=== PATIENT | male | born 1980 | race Caucasian/White ===

== ENCOUNTER 2018-11-27 10:56 | Inpatient (IN) | payer MEDICAID ==
[2018-11-27 11:06] VITALS: BMI 31.4
[2018-11-27 11:52] LABS: BASO # 0.01 K/mm3 (0.0-2.0); BASO % 0.2 % (0.0-3.0); EOS # 0.2 (0.0-0.7); EOS % 3.8 % (1.5-5.0); HEMOGLOBIN 14.5 g/dL (14.0-18.0); LYMPH # 2.1 (1.2-3.4); LYMPH % 41.6 % (22.0-35.0); MEAN CORPUSCULAR HEMOGLOBIN 30.8 pg (25.0-35.0); MEAN CORPUSCULAR HGB CONC 34.6 g/dl (31.0-37.0); MEAN PLATELET VOLUME 9.4 fl (7.0-11.0); MONO # 0.6 (0.1-0.6); MONO % 12.2 % (1.0-6.0); RBC 4.71 10^6/uL (3.5-6.1); RED CELL DISTRIBUTION WIDTH 13.2 % (11.5-14.5)
[2018-11-27 12:01] LABS: URINE BILIRUBIN NEGATIVE (NEGATIVE); URINE BLOOD NEGATIVE (NEGATIVE); URINE GLUCOSE (UA) NEGATIVE (NEGATIVE); URINE LEUKOCYTE ESTERASE NEGATIVE Leu/uL (NEGATIVE); URINE PROTEIN NEGATIVE mg/dL (<30 mg/dL)
[2018-11-27 12:04] LABS: ALB/GLOB RATIO 1.4 (1.1-1.8); ALBUMIN 4.3 g/dL (3.0-4.8); ALT/SGPT 79 U/L (7-56); AST/SGOT 39 U/L (17-59); BLOOD UREA NITROGEN 17 mg/dL (7-21); CALCIUM 9.4 mg/dL (8.4-10.5); GFR NON-AFRICAN AMERICAN > 60
[2018-11-27 12:05] LABS: ACETAMINOPHEN < 10.0 ug/ml (10.0-20.0); SALICYLATE < 1 mg/dL (2.0-20.0)
[2018-11-27 12:30] LABS: URINE APPEARANCE CLEAR (CLEAR); URINE COLOR YELLOW (YELLOW)
[2018-11-27 12:42] LABS: BARBITURATES, UR NEGATIVE (NEGATIVE); BENZODIAZEPINES, UR NEGATIVE (NEGATIVE); OPIATES, UR NEGATIVE (NEGATIVE); PHENCYCLIDINE, UR NEGATIVE (NEGATIVE)
--- NOTE | 2018-11-27 12:42 | RAD ---
Date of service: 11/27/2018 HISTORY: PES COMPARISON: No prior. TECHNIQUE: 1 view obtained. FINDINGS: LUNGS: No active pulmonary disease. PLEURA: No significant pleural effusion identified, no pneumothorax apparent. CARDIOVASCULAR: No aortic atherosclerotic calcification present. Normal cardiac size. No pulmonary vascular congestion. OSSEOUS STRUCTURES: No significant abnormalities. VISUALIZED UPPER ABDOMEN: Normal. OTHER FINDINGS: None. IMPRESSION: No active disease.
--- NOTE | 2018-11-27 14:14 | ED PDOC ---
Arrival/HPI - General Chief Complaint: Psychiatric Evaluation Time Seen by Provider: 11/27/18 10:58 Historian: Patient - History of Present Illness Narrative History of Present Illness (Text): 11/27/18 14:09 38yr old male presents today brought in by ambulance for psychiatric evaluation. Patient states he has been having some personal problems at home. Patient denies chest pain or shortness of breath. No dizziness or weakness. No nausea vomiting diarrhea or constipation. No abdominal pain. Patient states he is had some thoughts of suicide but does not have the capability of hurting himself. Patient states he has been having some issues with his family at home. He states he just wants to go home and try and work everything out with his family. Past Medical History - Provider Review Nursing Documentation Reviewed: Yes - Travel History Have you recently traveled outside [place] w/in the past 3 mons?: No - Infectious Disease Hx of Infectious Diseases: None - Psychiatric Hx Psychophysiologic Disorder: Yes Hx Depression: Yes Hx Substance Use: No - Anesthesia Hx Anesthesia: No Hx Anesthesia Reactions: No Hx Malignant Hyperthermia: No Family/Social History - Physician Review Nursing Documentation Reviewed: Yes Family/Social History: Unknown Family HX Smoking Status: Former Smoker Hx Alcohol Use: No Hx Substance Use: No Allergies/Home Meds Allergies/Adverse Reactions: Allergies No Known Allergies Allergy (Verified 11/27/18 11:05) Review of Systems - Review of Systems Constitutional: absent: Fatigue, Fevers Respiratory: absent: SOB, Cough Cardiovascular: absent: Chest Pain, Palpitations Gastrointestinal: absent: Abdominal Pain, Nausea, Vomiting Musculoskeletal: absent: Arthralgias Skin: absent: Rash, Pruritis Neurological: absent: Headache, Dizziness Psychiatric: Depression. absent: Anxiety, Suicidal Ideation Physical Exam Vital Signs Reviewed: Yes Vital Signs Temp Pulse Resp BP Pulse Ox 11/27/18 10:56 98.6 F 73 18 119/77 98 Temperature: Afebrile Blood Pressure: Normal Pulse: Regular Respiratory Rate: Normal Appearance: Positive for: Well-Appearing, Non-Toxic, Comfortable Pain Distress: None Mental Status: Positive for: Alert and Oriented X 3 - Systems Exam Head: Present: Atraumatic Mouth: Present: Moist Mucous Membranes Neck: Present: Normal Range of Motion Respiratory/Chest: Present: Clear to Auscultation, Good Air Exchange. No: Respiratory Distress, Accessory Muscle Use Cardiovascular: Present: Regular Rate and Rhythm, Normal S1, S2. No: Murmurs Abdomen: No: Tenderness, Distention, Peritoneal Signs, Rebound, Guarding Upper Extremity: Present: Normal Inspection Lower Extremity: Present: Normal Inspection Neurological: Present: GCS=15, Speech Normal Skin: Present: Warm, Dry, Normal Color. No: Rashes Psychiatric: Present: Alert, Oriented x 3 Medical Decision Making ED Course and Treatment: 11/27/18 14:16 Patient is nontoxic well-appearing in no distress vital signs are stable. CBC WNL CMP WNL Tylenol WNL Salicylate WNL Alcohol level WNL Urine drug screen wnl UA; wnl cxr: wnl ekg normal sinus rhythm at 71 bpm normal axis normal intervals no ST elevations pt is medically cleared for PES evaluation Patient was seen and evaluated by PES screener: Nancy After getting collateral from the patient's . The patient was placed on a one-to-one for suicide precautions. Patient signed voluntarily to the psychiatric floor. mpression: Depression Admit to behavioral health floor - Lab Interpretations Lab Results: Total Bilirubin 0.5 mg/dL (0.2-1.3) 11/27/18 11:35 AST 39 U/L (17-59) 11/27/18 11:35 ALT 79 U/L (7-56) H 11/27/18 11:35 Alkaline Phosphatase 87 U/L (38-126) 11/27/18 11:35 Total Protein 7.4 g/dL (5.8-8.3) 11/27/18 11:35 Albumin 4.3 g/dL (3.0-4.8) 11/27/18 11:35 Globulin 3.1 gm/dL 11/27/18 11:35 Albumin/Globulin Ratio 1.4 (1.1-1.8) 11/27/18 11:35 Urine Color Yellow (YELLOW) 11/27/18 11:38 Urine Appearance Clear (CLEAR) 11/27/18 11:38 Urine pH 7.0 (4.7-8.0) 11/27/18 11:38 Ur Specific [place] 1.020 (1.005-1.035) 11/27/18 11:38 Urine Protein Negative mg/dL (<30 mg/dL) 11/27/18 11:38 Urine Glucose (UA) Negative mg/dL (NEGATIVE) 11/27/18 11:38 Urine Ketones Negative mg/dL (NEGATIVE) 11/27/18 11:38 Urine Blood Negative (NEGATIVE) 11/27/18 11:38 Urine Nitrate Negative (NEGATIVE) 11/27/18 11:38 Urine Bilirubin Negative (NEGATIVE) 11/27/18 11:38 Urine Urobilinogen 1.0 E.U./dL (<1 E.U./dL) H 11/27/18 11:38 Ur Leukocyte Esterase Negative Mima/uL (NEGATIVE) 11/27/18 11:38 - RAD Interpretation Radiology Orders: 11/27/18 11:22 CHEST PORTABLE [RAD] Stat Disposition/Present on Arrival - Present on Arrival Any Indicators Present on Arrival: No History of DVT/PE: No History of Uncontrolled Diabetes: No Urinary Catheter: No History of Decub. Ulcer: No History Surgical Site Infection Following: None - Disposition Have Diagnosis and Disposition been Completed?: Yes Diagnosis: Depression Disposition: HOSPITALIZED Disposition Time: 15:00 Patient Plan: Admission Condition: FAIR
[2018-11-27 17:58] VITALS: O2SAT 99
--- NOTE | 2018-11-27 19:03 | PCM.BM ---
<BenedictAaron - Last Filed: 11/27/18 18:58> Treatment Plan Problems - Problems identified on initial assessmt Feelings of Worthlessness Date Initiated: 11/27/18 Time Initiated: 18:00 Assessment reference: NA Status: Active Priority: 1 Hopelessness/Helplessness Date Initiated: 11/27/18 Time Initiated: 18:00 Assessment reference: NA Status: Active Priority: 2 Ineffective Coping Date Initiated: 11/27/18 Time Initiated: 18:00 Assessment reference: NA Status: Active Treatment assets and liabiliti Patient Assests: cooperative, ADL independent, good support system, cognitively intact, good interpersonal skills Patient Liabilities: financial problems - Milieu Protocol Maintain good personal hygiene: daily Encourage regular showers, daily Remind patient to perform daily oral care, every shift Assist patient to perform ADL's Maintain personal safety: every shift Educate patient to report safety concerns to staff, every shift Monitor environment for contraband/sharps Medication safety: Monitor for expected outcome, potential side effects: every shift, Assess barriers to learning: every shift, Assess readiness for medication education: every shift Family Contact Family involvement: Family/SO is involved Family contact: Patient agrees to contact - Goals for Treatment Patient goals for treatment: Need coping skills Discharge/Continuing Care - Education Needs Education Needs: Patient Medication, Patient Diagnosis/Disease Process, Patient Coping Skills, Patient Anger Management skills, Patient Placement options, Patient Community resources, Patient Activities of Daily Living, Patient Pain, Patient Nutrition, Patient Uses of Medical Equipment, Patient Health Practices/Safety, Patient Personal Hygiene/Grooming, Patient Aftercare Safety Plan - Discharge Discharge Criteria: Tolerates medication w/o severe side effects <Tamiko Pearson - Last Filed: 11/28/18 08:45> - Diagnosis (1) MDD (major depressive disorder) Status: Acute Interventions: 11/28/18 08:45 Psychoeducation Psychopharmacology/adjustment of medications as needed/ monitoring possible side effects Evaluate pt on daily basis Compliance with medications and follow up appointments Suicide and homicide risk assessment and prevention Relapse prevention Reduction of symptoms Improve functional status Family involvement As outpatient: cognitive behavioral therapy <Kenzie Cr - Last Filed: 11/29/18 11:21> Family Contact Family involvement: Famliy/SO not involved Family contact: Patient declines to allow family contact at present - Goals for Treatment Patient goals for treatment: "I just want to leave." <Paty Morgan - Last Filed: 11/29/18 12:15>
--- NOTE | 2018-11-27 21:23 | CARD ---
APPROVED REPORT Date of service: 11/27/2018 EKG Measurement Heart [id number] <Conclusion> Normal sinus rhythm Normal ECG
[2018-11-28 08:20] LABS: GLUCOSE,FASTING 92 mg/dL (65-110); HDL CHOLESTEROL 28 mg/dL (29-60)
[2018-11-28 08:30] LABS: LDL CHOLESTEROL 134 mg/dL (0-129)
--- NOTE | 2018-11-28 15:28 | PCM.PSYCH ---
Initial Psychiatric Evaluation - Initial Psychiatric Evaluation Type of Admission: Voluntary Legal Status: Capacity Chief Complaint (in patient's own words): "I have certain expectations from myself, I was facing couple of problems, I think that I have some issues...." Patient's Reaction to Hospitalization: Patient was admitted for evaluation and stabilization of depressive symptoms, possible suicidal ideations, patient told his to take care of kids and made it clear that he wanted to end up his life. History of Present Illness and Precipitating Events: shortly, patient is a 38-year old male, not known previous psychiatric history, patient denies history of suicidal attempts, patient denies history of being admitted to the psychiatric inpatient unit, patient was brought in by ambulance for evaluation of depressive symptoms. In the emergency room patient was minimizing his symptoms, denied any thoughts of harming himself, but as per patient's collateral information patient was verbalizing suicidal ideation with a plan to jump off the bridge. Patient texted his "I am done" "You win" "I can't do this anymore" "Take care of Roosevelt". patient expressed highs concerns about patient's safety, patient was admitted for observation and stabilization and medication initiation and titration. Patient was seen and examined today at the treatment team meeting, patient presented with acceptable personal hygiene, good ADLs, patient appears to be poor and unreliable historian, was making vague statements such as "I had a few problems, I was facing few issues, I was not able to pass some difficulties....."thought process was circumstantial but not tangential Patient was not opening up, patient reported for past 1 week and a half she was not doing well. Pt admitted that he had a suicidal ideation only when this quality analyst/technical writer mentioned about his text to his , pt became tearful. Patient denied manic episodes, denied, denied anxiety symptoms. Patient denied hearing voices, denies seeing things, denies paranoid ideations, but patient presented to be guarded. Patient is 04/09 Survivor, as per collateral pt had unspecified childhood trauma, but denied any current/active PTSD symptoms. pt reported that he has difficulties in his paige in God now. Patient denies using drugs, denies smoking, denies alcohol consumption. Patient has history of cannabis abuse. Past psychiatric history: Denied Family history: Patient denies family history of mental illness, patient denies history of suicidal attempts. Medical history: Patient reported being healthy. Patient contracted for safety. pt currently lives alone, pt's and kids staying in her mom's apartment. over the weekend pt's family stay together. pt's kids are 6yo and 3months old. pt currently unemployed, reported difficulties to keep a job, last job was about two weeks ago, pt staid for 1,5weeks there, prior to that in July 2018. longest employment was 2years. 11/27/18 11:35 11/27/18 11:35 Lab Results 11/28/18 07:45: TSH 3rd Generation 1.41 11/28/18 07:45: Hemoglobin A1c 5.9 11/28/18 07:45: Fasting Glucose 92, Triglycerides 154, Cholesterol 198, LDL Cholesterol Direct 134 H, HDL Cholesterol 28 L 11/27/18 11:38: Urine Opiates Screen Negative, Urine Methadone Screen Negative, Ur Barbiturates Screen Negative, Ur Phencyclidine Scrn Negative, Ur Amphetamines Screen Negative, U Benzodiazepines Scrn Negative, U Oth Cocaine Metabols Negative, U Cannabinoids Screen Negative 11/27/18 11:38: Urine Color Yellow, Urine Appearance Clear, Urine pH 7.0, Ur Specific [place] 1.020, Urine Protein Negative, Urine Glucose (UA) Negative, Urine Ketones Negative, Urine Blood Negative, Urine Nitrate Negative, Urine Bilirubin Negative, Urine Urobilinogen 1.0 H, Ur Leukocyte Esterase Negative 11/27/18 11:35: Alcohol, Quantitative < 10 11/27/18 11:35: Salicylates < 1 L, Acetaminophen < 10.0 L 11/27/18 11:35: Sodium 139, Potassium 4.2, Chloride 104, Carbon Dioxide 28, Anion Gap 10, BUN 17, Creatinine 1.0, Est GFR ( Amer) > 60, Est GFR (Non- Af Amer) > 60, Random Glucose 99, Calcium 9.4, Total Bilirubin 0.5, AST 39, ALT 79 H, Alkaline Phosphatase 87, Total Protein 7.4, Albumin 4.3, Globulin 3.1, Albumin/Globulin Ratio 1.4 11/27/18 11:35: WBC 5.0, RBC 4.71, Hgb 14.5, Hct 41.9 L, MCV 89.0, MCH 30.8, MCHC 34.6, RDW 13.2, Plt Count 268, MPV 9.4, Neut % (Auto) 42.2 L, Lymph % (Auto) 41.6 H, [place] % (Auto) 12.2 H, Eos % (Auto) 3.8, Baso % (Auto) 0.2, Lymph # (Auto) 2.1, [place] # (Auto) 0.6, Eos # (Auto) 0.2, Baso # (Auto) 0.01, Absolute Neuts (auto) 2.11 Vital Signs Temp Pulse Resp BP Pulse Ox 11/28/18 06:32 97.6 F 89 16 117/79 11/27/18 16:47 98.3 F 74 17 124/88 99 11/27/18 16:04 98.5 F 67 17 127/85 97 11/27/18 14:26 98 F 73 19 121/81 98 11/27/18 10:56 98.6 F 73 18 119/77 98 The patient failed the outpatient lower level of care: Yes Current Medications: none Present on Admission - Present on Admission Any Indicators Present on Admission: No History of DVT/PE: No History of Uncontrolled Diabetes: No Urinary Catheter: No Decubitus Ulcer Present: No Review of Systems - Review of Systems Systems not reviewed;Unavailable: Acuity of Condition - Constitutional Constitutional: As Per HPI - EENT Eyes: As Per HPI Ears: As Per HPI Nose/Mouth/Throat: As Per HPI - Cardiovascular Cardiovascular: As Per HPI - Respiratory Respiratory: As Per HPI - Gastrointestinal Gastrointestinal: As Per HPI - Genitourinary Genitourinary: As Per HPI - Reproductive: Male Reproductive:Male: As Per HPI - Musculoskeletal Musculoskeletal: As Per HPI - Integumentary Integumentary: As Per HPI - Neurological Neurological: As Per HPI - Psychiatric Psychiatric: As Per HPI - Endocrine Endocrine: As Per HPI - Hematologic/Lymphatic Hematologic: As Per HPI Past Patient History - Past Psychiatric History Previous Treatment History: None Prior Professional Help: See HPI Prior Psychiatric Treatment: See HPI At what hospital: See HPI Duration: See HPI Nature of Treatment: See HPI Explanation of prior treatment: See HPI - PSYCHIATRIC Hx Psychophysiologic Disorder: Yes Hx Depression: Yes Hx Substance Use: No - Infectious Disease Hx of Infectious Diseases: None - CARDIAC Hx Cardiac Disorders: No Hx Hypertension: No - PULMONARY Hx Tuberculosis: No - NEUROLOGICAL HX Cerebrovascular Accident: No Hx Seizures: No - HEMATOLOGICAL/ONCOLOGICAL Hx Cancer: No Hx Human Immunodeficiency Virus (HIV): No - GENITOURINARY/GYNECOLOGICAL Hx Sexually Transmitted Disorders: No - SURGICAL HISTORY Hx Surgeries: No - ANESTHESIA Hx Anesthesia: No Hx Anesthesia Reactions: No Hx Malignant Hyperthermia: No - Medical/Surgical History Reviewed & confirmed: by la Meds Allergies/Adverse Reactions: Allergies Allergy/AdvReac Type Severity Reaction Status Date / Time No Known Allergies Allergy Verified 11/27/18 17:57 Mental Status Examination - Personal Presentation Personal Presentation: Looks stated age - Affect Affect: Constricted (Tearful), Flat - Motor Activity Motor Activity: Psychomotor Retardation - Reliability in Providing Information Reliability in Providing Information: Other (Patient was resistant to provide any information) - Speech Speech: Organized - Mood Mood: Depressed, Anxious - Formal Thought Process Formal Thought Process: Other (Patient was guarded) - Obsessions/Compulsions Obsessions: None Compulsions: None - Cognitive Functions Orientation: Person, Place, Situation, Time Sensorium: Alert Attention/Concentration: Easily distracted Estimate of Intelligence: Average Judgement: Imparied, as evidence by: Other (Patient agreed to this admission only because he was facing involuntary commitment) - Risk Risk: Suicidal, Diminished functioning - Strength & Assets Inventory Strength & Assets Inventory: Family support, Cooperative - Limitations Limitations: Living alone (Patient is not forthcoming with information, was secretive) Psychiatric Physical Exam - Physical Exam Reviewed and confirmed: Emergency Department Physical Exam Results - Vital Signs Recent Vital Signs: Last Vital Signs Temp 97.6 F 11/28/18 06:32 Pulse 89 11/28/18 06:32 Resp 16 11/28/18 06:32 BP 117/79 11/28/18 06:32 Pulse Ox 99 11/27/18 16:47 - Labs Result Diagrams: 11/27/18 11:35 11/27/18 11:35 Labs: Laboratory Results - last 24 hr 11/27/18 11/27/18 11/27/18 11:35 11:35 11:35 WBC 5.0 RBC 4.71 Hgb 14.5 Hct 41.9 L MCV 89.0 MCH 30.8 MCHC 34.6 RDW 13.2 Plt Count 268 MPV 9.4 Neut % (Auto) 42.2 L Lymph % (Auto) 41.6 H [place] % (Auto) 12.2 H Eos % (Auto) 3.8 Baso % (Auto) 0.2 Lymph # (Auto) 2.1 [place] # (Auto) 0.6 Eos # (Auto) 0.2 Baso # (Auto) 0.01 Absolute Neuts (auto) 2.11 Sodium 139 Potassium 4.2 Chloride 104 Carbon Dioxide 28 Anion Gap 10 BUN 17 Creatinine 1.0 Est GFR ( Amer) > 60 Est GFR (Non-Af Amer) > 60 Random Glucose 99 Fasting Glucose Calcium 9.4 Total Bilirubin 0.5 AST 39 ALT 79 H Alkaline Phosphatase 87 Total Protein 7.4 Albumin 4.3 Globulin 3.1 Albumin/Globulin Ratio 1.4 Triglycerides Cholesterol LDL Cholesterol Direct HDL Cholesterol Urine Color Urine Appearance Urine pH Ur Specific [place] Urine Protein Urine Glucose (UA) Urine Ketones Urine Blood Urine Nitrate Urine Bilirubin Urine Urobilinogen Ur Leukocyte Esterase Salicylates < 1 L Urine Opiates Screen Urine Methadone Screen Acetaminophen < 10.0 L Ur Barbiturates Screen Ur Phencyclidine Scrn Ur Amphetamines Screen U Benzodiazepines Scrn U Oth Cocaine Metabols U Cannabinoids Screen Alcohol, Quantitative 11/27/18 11/27/18 11/27/18 11:35 11:38 11:38 WBC RBC Hgb Hct MCV MCH MCHC RDW Plt Count MPV Neut % (Auto) Lymph % (Auto) [place] % (Auto) Eos % (Auto) Baso % (Auto) Lymph # (Auto) [place] # (Auto) Eos # (Auto) Baso # (Auto) Absolute Neuts (auto) Sodium Potassium Chloride Carbon Dioxide Anion Gap BUN Creatinine Est GFR ( Amer) Est GFR (Non-Af Amer) Random Glucose Fasting Glucose Calcium Total Bilirubin AST ALT Alkaline Phosphatase Total Protein Albumin Globulin Albumin/Globulin Ratio Triglycerides Cholesterol LDL Cholesterol Direct HDL Cholesterol Urine Color Yellow Urine Appearance Clear Urine pH 7.0 Ur Specific [place] 1.020 Urine Protein Negative Urine Glucose (UA) Negative Urine Ketones Negative Urine Blood Negative Urine Nitrate Negative Urine Bilirubin Negative Urine Urobilinogen 1.0 H Ur Leukocyte Esterase Negative Salicylates Urine Opiates Screen Negative Urine Methadone Screen Negative Acetaminophen Ur Barbiturates Screen Negative Ur Phencyclidine Scrn Negative Ur Amphetamines Screen Negative U Benzodiazepines Scrn Negative U Oth Cocaine Metabols Negative U Cannabinoids Screen Negative Alcohol, Quantitative < 10 11/28/18 07:45 WBC RBC Hgb Hct MCV MCH MCHC RDW Plt Count MPV Neut % (Auto) Lymph % (Auto) [place] % (Auto) Eos % (Auto) Baso % (Auto) Lymph # (Auto) [place] # (Auto) Eos # (Auto) Baso # (Auto) Absolute Neuts (auto) Sodium Potassium Chloride Carbon Dioxide Anion Gap BUN Creatinine Est GFR ( Amer) Est GFR (Non-Af Amer) Random Glucose Fasting Glucose 92 Calcium Total Bilirubin AST ALT Alkaline Phosphatase Total Protein Albumin Globulin Albumin/Globulin Ratio Triglycerides 154 Cholesterol 198 LDL Cholesterol Direct 134 H HDL Cholesterol 28 L Urine Color Urine Appearance Urine pH Ur Specific [place] Urine Protein Urine Glucose (UA) Urine Ketones Urine Blood Urine Nitrate Urine Bilirubin Urine Urobilinogen Ur Leukocyte Esterase Salicylates Urine Opiates Screen Urine Methadone Screen Acetaminophen Ur Barbiturates Screen Ur Phencyclidine Scrn Ur Amphetamines Screen U Benzodiazepines Scrn U Oth Cocaine Metabols U Cannabinoids Screen Alcohol, Quantitative - EKG Data EKG Interpreted by: ER Physician DSM Plan - DSM 5 DSM 5 Diagnosis: Major depressive disorder, single episode, severe, with no psychosis Rule out adjustment disorder - Recommended/Plan of Treatment Treatment Recommendations and Plan of Treatment: Milieu/structure/supportive therapy SW consultation for discharge plan and social issues Med management Wellbutrin 75 mg twice a day for major depressive disorder Klonopin 0.25 mg twice a day as needed for anxiety Sonata 5 mg as needed at the nighttime for insomnia Family involvement Follow up on labs Will monitor closely Pt was educated about risk/benefits and alternatives of medications, coping strategies (safety plan, suicide prevention), relapse prevention, importance of follow up with psychiatrist and therapist, stay away from drugs/alcohol/smoking Projected ELOS: 7 days Prognosis: guarded Discharge Plan and Discharge Criteria: Patient will be less depressed, reports no imminent danger to self or others, will be able to function - Tobacco Cessation Tobacco Use Status for the last 30 days: Non User Tobacco Use Treatment Practical Counseling Provided: No Tobacco Use Treatment FDA-Approved Cessation Medication Provided: No - Alcohol or Substance Abuse Does the patient have an Alcohol or Substance Abuse Disorder: No Initial Psych Certification - Initial Certification I certify that the inpatient psychiatric facility admission was medically necessary for either: Treatment which could reasonbly be expected to improve pt's condition I estimate of hospitalization is necessary for proper treatment of the patient: 7 Unit of Time: Days My plans for post-hospital care for this patient are: Intensive outpatient program versus the day treatment program
--- NOTE | 2018-11-29 15:29 | PCM.PYCHPN ---
Psychiatric Progress Note - Psychiatric Progress Note Patient seen today, length of contact: 30min Patient Chief Complaint: "I would never cross the line, from now on I am responsible for my own decisions, I don't want you to call my , I can take care of myself...." Problems Identified/Issues Discussed: treatment plan, medications, symptoms, 48hr notice, suicide and homicide prevention. Medical Problems: denied Diagnostic Results: 11/27/18 11:35 11/27/18 11:35 Lab Results 11/28/18 07:45: RPR Nonreactive 11/28/18 07:45: TSH 3rd Generation 1.41 11/28/18 07:45: Hemoglobin A1c 5.9 11/28/18 07:45: Fasting Glucose 92, Triglycerides 154, Cholesterol 198, LDL Cholesterol Direct 134 H, HDL Cholesterol 28 L 11/27/18 11:38: Urine Opiates Screen Negative, Urine Methadone Screen Negative, Ur Barbiturates Screen Negative, Ur Phencyclidine Scrn Negative, Ur Amphetamines Screen Negative, U Benzodiazepines Scrn Negative, U Oth Cocaine Metabols Negative, U Cannabinoids Screen Negative 11/27/18 11:38: Urine Color Yellow, Urine Appearance Clear, Urine pH 7.0, Ur Specific Bend 1.020, Urine Protein Negative, Urine Glucose (UA) Negative, Urine Ketones Negative, Urine Blood Negative, Urine Nitrate Negative, Urine Bilirubin Negative, Urine Urobilinogen 1.0 H, Ur Leukocyte Esterase Negative 11/27/18 11:35: Alcohol, Quantitative < 10 11/27/18 11:35: Salicylates < 1 L, Acetaminophen < 10.0 L 11/27/18 11:35: Sodium 139, Potassium 4.2, Chloride 104, Carbon Dioxide 28, Anion Gap 10, BUN 17, Creatinine 1.0, Est GFR ( Amer) > 60, Est GFR (Non- Af Amer) > 60, Random Glucose 99, Calcium 9.4, Total Bilirubin 0.5, AST 39, ALT 79 H, Alkaline Phosphatase 87, Total Protein 7.4, Albumin 4.3, Globulin 3.1, Albumin/Globulin Ratio 1.4 11/27/18 11:35: WBC 5.0, RBC 4.71, Hgb 14.5, Hct 41.9 L, MCV 89.0, MCH 30.8, MCHC 34.6, RDW 13.2, Plt Count 268, MPV 9.4, Neut % (Auto) 42.2 L, Lymph % (Auto) 41.6 H, [place] % (Auto) 12.2 H, Eos % (Auto) 3.8, Baso % (Auto) 0.2, Lymph # (Auto) 2.1, [place] # (Auto) 0.6, Eos # (Auto) 0.2, Baso # (Auto) 0.01, Absolute Neuts (auto) 2.11 Vital Signs Temp Pulse Resp BP Pulse Ox 11/29/18 06:37 97.9 F 87 14 113/74 11/28/18 16:00 83 122/86 11/28/18 06:32 97.6 F 89 16 117/79 11/27/18 16:47 98.3 F 74 17 124/88 99 11/27/18 16:04 98.5 F 67 17 127/85 97 11/27/18 14:26 98 F 73 19 121/81 98 11/27/18 10:56 98.6 F 73 18 119/77 98 DSM 5 Symptoms Update: shortly, patient is a 38-year old male, not known previous psychiatric history, patient denies history of suicidal attempts, patient denies history of being admitted to the psychiatric inpatient unit, patient was brought in by ambulance for evaluation of depressive symptoms. In the emergency room patient was minimizing his symptoms, denied any thoughts of harming himself, but as per patient's collateral information patient was verbalizing suicidal ideation with a plan to jump off the bridge. Patient texted his "I am done" "You win" "I can't do this anymore" "Take care of [place]". patient expressed highest concerns about patient's safety, patient was admitted for observation and stabilization and medication initiation and titration. Please see admission note for more detailed information. Patient was seen and examined today at the treatment team meeting, patient pres ented with acceptable personal hygiene, good ADLs, patient appears to be poor and unreliable historian, was making vague statements such as "I had a few problems, I was facing few issues, I was not able to pass some difficulties....."pt said "I Know were you are coming from, I do appreciate your help, I love you all, but I want to be discharged, I want my freedom back...", pt was educated again about his rights to submit 48hr notice, but pt do not want to sign it, said "I want you to discharge me regularly.." pt's thought process seems to be mildly disorganized, pt was making odd and vague statements, did not give this tech writer permission to talk to his because "I am a grown man, from now on I will be responsible for my actions.." pt has few alarming signs: pt is not forthcoming with his symptoms, pt never disclosed his SI and plan, but pt texted good by letter to his family paranoia cannot be excluded, pt refused to sign treatment plan, saying "I don't know what I am signing anymore" pt signed consent for psychiatric inpatient admission only because he was facing screening process by [facility] in ED pt did not come to the hospital by himself, but called 911 and police pt lives alone, visit him only over the weekend pt does not work pt has poor social support pt mentioned that his jehovah's witness beliefs were changed refused to give permission to speak to his h/o suicidal attempt about one year ago (see below), pt did not look for help/treatment pt's later called SW, and after to pt, and was able to convince pt to sing consent for collateral info. SW called to after pt gave written consent as per h/o: pt had severe suicidal attempt about a year ago, pt was standing at [facility], but was able to convince him not to jump, pt never get any treatment, pt was paranoid, feeling that something bad is going to happen if he will go for the job interview. see SW note for more detailed info. pt's expressed highest concerns about pt's safety. as per staff pt is superficially pleasant, guarded, paranoid. Impression: MDD, severe with psychosis Medication Change: Yes (wellbutrin, risperdal) Medical Record Reviewed: Yes Consults ordered or reviewed: pt was evaluated/cleared by medical team in ED Mental Status Examination - Cognitive Function Orientation: Person, Place, Situation, Time Memory: Intact Attention: Poor Concentration: Poor Association: Loose Fund of Knowledge: WNL - Mood Mood: Depressed, Anxious - Affect Affect: Constricted (Tearful), Flat - Formal Thought Process Formal Thought Process: Paranoia, Other (Patient was guarded) - Suicidal Ideation Plan: cannot be excluded - Homicidal Ideation Homicidal Ideation: No Goal/Treatment Plan - Goal/Treatment Plan Need for Continued Stay: Remain at risks for inpatient hospitalization, Severe depression anxiety, Discharge may exacerbated symptoms, Severe functional impairment Progress Toward Problem(s) and Goals/Treatment Plan: Milieu/structure/supportive therapy SW consultation for discharge plan and social issues Med management Wellbutrin, probably d/c because of psychosis, will d/w with pt about other options Klonopin 0.25 mg twice a day as needed for anxiety Sonata 5 mg as needed at the nighttime for insomnia will add risperdal 0.5mg po bid for psychosis Family involvement Follow up on labs Will monitor closely Pt was educated about risk/benefits and alternatives of medications, coping strategies (safety plan, suicide prevention), relapse prevention, importance of follow up with psychiatrist and therapist, stay away from drugs/alcohol/smoking Estimated Date of D/C: 12/04/18
[2018-11-30] MEDS: buPROPion 150 mg/24 Hours XL Tab PO SCH (08:34)
--- NOTE | 2018-11-30 09:10 | PCM.PYCHPN ---
Psychiatric Progress Note - Psychiatric Progress Note Patient seen today, length of contact: 30min Problems Identified/Issues Discussed: Patient is a 38-year old male, not known previous psychiatric history, one previous suicidal gesture/attempts x 1 year ago {patient stood at [facility] threatening to jump}, patient denies history of being admitted to the psychiatric inpatient unit currently being treated for symptoms of depression and paranoia. Mr. Briggs has been a reluctant patient for the initial part of this hospitalization, repeatedly indicating that he didn't need to be in a psychiatric unit. Nonetheless patient has been compliant with medications and fairly calm without aggression or agitation. He keeps to himself, grooms appropriately and has been responsive with questioning. Patient spontaneously told nursing at 3:30 am "I feel different I feel good I want to continue my treatment here". Patient presents as mildly guarded and constricted during my visit. He is superficially friendly and tries to smile (appropriately) at times during our interview. He denies any new concerns including side effects or new discomfort or pain. Sleep was restless last night however he defers on any changes to his night-time medications. Patient reports his mood is more hopeful and denies SI or wishes. Patient is not responding to internal stimuli and denies perceptual disturbance. Diagnostic Results: Major depressive disorder, single episode, severe, with no psychosis Rule out adjustment disorder Medication Change: No ( ) Medical Record Reviewed: Yes Mental Status Examination - Cognitive Function Orientation: Person, Place, Situation, Time Memory: Intact Attention: WNL Concentration: Poor Association: Loose Fund of Knowledge: WNL - Mood Mood: Depressed, Anxious - Affect Affect: Constricted (Tearful), Flat - Speech Speech: Appropriate - Formal Thought Process Formal Thought Process: Paranoia, Other (Patient was guarded) - Suicidal Ideation Suicidal Ideation: No - Homicidal Ideation Homicidal Ideation: No Goal/Treatment Plan - Goal/Treatment Plan Need for Continued Stay: Remain at risks for inpatient hospitalization, Severe depression anxiety, Discharge may exacerbated symptoms, Severe functional impairment Progress Toward Problem(s) and Goals/Treatment Plan: * c/w current tx and plan * No new lab results thus far this weekend * Vitals reviewed and noted below: Selected Entries 11/29/18 11/29/18 06:37 15:00 Temperature 97.9 F Pulse Rate 87 89 Respiratory 14 Rate Blood Pressure 113/74 115/74 Estimated Date of D/C: 12/04/18
[2018-11-30] MEDS ORDERED: Bisacodyl 5mg EC Tab PO ONE (19:59)
[2018-12-01] MEDS: buPROPion 150 mg/24 Hours XL Tab PO SCH (08:25)
--- NOTE | 2018-12-01 08:31 | PCM.PYCHPN ---
Psychiatric Progress Note - Psychiatric Progress Note Patient seen today, length of contact: 30min Problems Identified/Issues Discussed: Patient is a 38-year old male, not known previous psychiatric history, one previous suicidal gesture/attempts x 1 year ago [facility] patient denies history of being admitted to the psychiatric inpatient unit currently being treated for symptoms of depression and paranoia. Mr. Briggs has been a reluctant patient for the initial part of this hospitalization, repeatedly indicating that he didn't need to be in a psychiatric unit. Nonetheless patient has been compliant with medications and fairly calm without aggression or agitation. Patient spontaneously told nursing at 3:30 am on 11/30/18 "I feel different I feel good I want to continue my treatment here". On 12/01/18 patient continued to report improvement in mood, self control and perspective. He indicated that he is "less resistant" about accepting help. Patient denies any new concerns including side effects or new discomfort or pain. Patient slept better last night and reports good appetite. Denies anxiety on the unit. Patient has been in good control and cooperative with staff over the weekend. He has been visible in the dayroom, reading or playing cards. His behavior has been appropriate and calm. He keeps to himself, grooms appropriately and has been responsive with questioning. Thought process remains coherent without any overt indication of a psychotic process at this time. I/J are improving Diagnostic Results: Major depressive disorder, single episode, severe, with no psychosis Rule out adjustment disorder Medication Change: Yes (colace initiated) Medical Record Reviewed: Yes Mental Status Examination - Cognitive Function Orientation: Person, Place, Situation, Time Memory: Intact Attention: WNL Concentration: WNL Association: WNL Fund of Knowledge: WNL - Mood Mood: Depressed (better, hopeful), Anxious - Affect Affect: Constricted (friendly, bright), Flat - Speech Speech: Appropriate - Formal Thought Process Formal Thought Process: Paranoia (improving), Other (Patient was guarded) - Suicidal Ideation Suicidal Ideation: No - Homicidal Ideation Homicidal Ideation: No Goal/Treatment Plan - Goal/Treatment Plan Need for Continued Stay: Remain at risks for inpatient hospitalization, Severe depression anxiety, Discharge may exacerbated symptoms, Severe functional impairment Progress Toward Problem(s) and Goals/Treatment Plan: * c/w current tx and plan * No new lab results thus far this weekend * Vitals reviewed and noted below: Selected Entries 11/30/18 11/30/18 08:08 15:55 Temperature 97.6 F Pulse Rate 101 H Respiratory 18 Rate Blood Pressure 122/77 116/67 Estimated Date of D/C: 12/04/18
[2018-12-02] MEDS: buPROPion 150 mg/24 Hours XL Tab PO SCH (08:57)
--- NOTE | 2018-12-02 14:23 | CP.PCM.CON ---
<Denis Hernandez - Last Filed: 12/02/18 14:18> History of Present Illness - History of Present Illness History of Present Illness: Denis Hernandez DO, PGY-1 Hospitalist Consult Note for Dr. Nathan Rutledge Reason for consult: tachycardia, rash on neck HPI: Patient is a 38 year old male with self reported medical history of pre- diabetes presented to ED via EMS for psychiatric evaluation. Patient stated that he was having personal problems at home and that he had some thoughts of suici de. Patient is currently undergoing treatment for stabilization of depressive symptoms. Medicine consult is requested for evaluation of tachycardia and a rash on patient's neck. 12-point ROS was otherwise negative except as specified above. PMD: none Past Medical History: self-reported pre-diabetes Past Surgical History: none Allergies: NKA Home medications: Bupropion SR 100 mg daily Family History: mother and father both still living, mother has DM2 Social History: admits to history of cannabis use but has not used recently, denies tobacco, EtOH, or other illicit drug use Past Patient History - Infectious Disease Hx of Infectious Diseases: None - Past Social History Smoking Status: Former Smoker - CARDIAC Hx Cardiac Disorders: No Hx Hypertension: No - PULMONARY Hx Tuberculosis: No - NEUROLOGICAL HX Cerebrovascular Accident: No Hx Seizures: No - HEMATOLOGICAL/ONCOLOGICAL Hx Cancer: No Hx Human Immunodeficiency Virus (HIV): No - GENITOURINARY/GYNECOLOGICAL Hx Sexually Transmitted Disorders: No - PSYCHIATRIC Hx Psychophysiologic Disorder: Yes Hx Depression: Yes Hx Substance Use: No - SURGICAL HISTORY Hx Surgeries: No - ANESTHESIA Hx Anesthesia: No Hx Anesthesia Reactions: No Hx Malignant Hyperthermia: No Meds Allergies/Adverse Reactions: Allergies Allergy/AdvReac Type Severity Reaction Status Date / Time No Known Allergies Allergy Verified 11/27/18 17:57 - Medications Medications: Current Medications Betamethasone/Clotrimazole (Lotrisone) 0 gm TOP BID [facility] Bupropion HCl (Wellbutrin Xl) 150 mg PO DAILY [facility] Last Admin: 12/02/18 08:57 Dose: 150 mg Clonazepam (Klonopin) 0.5 mg PO BID PRN; Protocol PRN Reason: Anxiety Docusate Sodium (Colace) 100 mg PO TID WIL Stop: 12/03/18 13:01 Last Admin: 12/02/18 12:55 Dose: 100 mg Risperidone (Risperdal Tab) 1 mg PO AMHS WIL; Protocol Last Admin: 12/02/18 11:10 Dose: Not Given Zaleplon (Sonata) 5 mg PO HS PRN PRN Reason: Insomnia Physical Exam - Constitutional Appears: Non-toxic, No Acute Distress - Head Exam Head Exam: ATRAUMATIC, NORMOCEPHALIC - Eye Exam Eye Exam: EOMI, PERRL - ENT Exam ENT Exam: Mucous Membranes Moist - Neck Exam Neck exam: Positive for: Full Rom. Negative for: Lymphadenopathy Additional comments: Area of mixed hypopigmented and hyperpigmented macules and patches consistent with tinea versicolor - Respiratory Exam Respiratory Exam: Clear to Auscultation Bilateral, NORMAL BREATHING PATTERN. absent: Accessory Muscle Use, Rales, Rhonchi, Wheezes, Respiratory Distress - Cardiovascular Exam Cardiovascular Exam: REGULAR RHYTHM, RRR, +S1, +S2. absent: Diastolic murmur, Gallop, Rubs, Systolic Murmur - GI/Abdominal Exam GI & Abdominal Exam: Normal Bowel Sounds, Soft. absent: Guarding, Rebound, Tenderness - Extremities Exam Extremities exam: Positive for: full ROM. Negative for: pedal edema - Back Exam Back exam: NORMAL INSPECTION - Neurological Exam Neurological exam: Alert, Oriented x3 - Skin Skin Exam: Dry, Intact, Warm Additional comments: skin findings on neck exam as above Results - Vital Signs Recent Vital Signs: Last Vital Signs Temp 98.2 F 12/02/18 06:53 Pulse 106 H 12/02/18 06:53 Resp 20 12/02/18 06:53 BP 122/82 12/02/18 06:53 Pulse Ox 99 11/27/18 16:47 - Labs Result Diagrams: 11/27/18 11:35 11/27/18 11:35 Assessment & Plan - Assessment and Plan (Free Text) Assessment: 38 yo M with self reported PMH of pre-diabetes admitted to psychiatric unit for management/stabilization of depressive symptoms and possible suicidal ideations. Medicine consult is requested for concern of tachycardia and rash around patient's neck. Plan: Tachycardia Patient admits that staff have been measuring his VS following his daily exercises Recommend measuring patient VS after he has been resting comfortably for > 5 minutes No other intervention warranted at this time Tinea Versicolor Patient's neck rash is most consistent with tinea versicolor Recommend application of clotrimazole/betamethasone cream BID PRN Constipation Patient endorsed constipation, last BM was last Sunday Agree with colace 100 mg BID Thank you for allowing us to participate in the care of Mr. Briggs. Please re- consult as needed. Patient seen, examined with, and plan discussed with my attending Dr. Nathan Hernandez D.O. IM Resident PGY-1 Pager: [phone] <Liyah Rutledge R - Last Filed: 12/02/18 18:01> Meds - Medications Medications: Current Medications Betamethasone/Clotrimazole (Lotrisone) 0 gm TOP BID [facility] Last Admin: 12/02/18 17:36 Dose: 1 oin Bupropion HCl (Wellbutrin Xl) 150 mg PO DAILY [facility] Last Admin: 12/02/18 08:57 Dose: 150 mg Clonazepam (Klonopin) 0.5 mg PO BID PRN; Protocol PRN Reason: Anxiety Docusate Sodium (Colace) 100 mg PO TID WIL Stop: 12/03/18 13:01 Last Admin: 12/02/18 17:36 Dose: 100 mg Risperidone (Risperdal Tab) 1 mg PO AMHS WIL; Protocol Last Admin: 12/02/18 11:10 Dose: Not Given Zaleplon (Sonata) 5 mg PO HS PRN PRN Reason: Insomnia Results - Vital Signs Recent Vital Signs: Last Vital Signs Temp 98.2 F 12/02/18 06:53 Pulse 92 H 12/02/18 16:00 Resp 20 12/02/18 06:53 BP 114/79 12/02/18 16:00 Pulse Ox 99 11/27/18 16:47 - Labs Result Diagrams: 11/27/18 11:35 11/27/18 11:35 Attending/Attestation - Attestation I have personally seen and examined this patient.: Yes I have fully participated in the care of the patient.: Yes I have reviewed all pertinent clinical information: Yes Notes (Text): Patient seen and examined by me with resident at approximately 11:30AM on 12/02/18. Case including HPI, physical exam, and assessment and plan discussed with resident. Agree with above with following additions/corrections. Patient is a 38-year-old male with past medical history significant for suicidal ideation approximately one year ago that presented to the emergency room for depression and possible suicidal ideations. Patient was admitted to psychiatric unit. Medicine team consulted for rash around neck and tachycardia. Patient states that he is feeling ok. He states that his vitals are being done after he works out and that is why his heart rate is slightly elevated. Patient denies any chest pain or palpitations. Patient states that he has had the rash on his neck for sometime. It comes and goes and sometimes is "itchy." Patient denies any allergies or wearing any jewelry in the area. No shortness of breath. No headaches or dizziness. No nausea, vomiting, or abdominal pain. No dysuria. Patient states he is having bowel movements but they are not "full bowel movements." No fevers or chills. 12 point review of systems reviewed by me. Please see above HPI. All other systems are negative. Physical exam: General: Awake and alert sitting up in chair in no acute distress HEENT: Normocephalic, atraumatic. Extraocular muscles intact. Pupils equal and reactive, no scleral icterus. Oropharynx is pink and moist. No pharyngeal erythema or exudate appreciated. Neck is supple. Cardiovascular: Normal rhythm. Normal S1 and S2. No murmurs, rubs, or gallops appreciated Pulmonary: Normal respiratory effort. No rhonchi, rales, or wheezing appreciated Gastrointestinal: Soft, nondistended. Nontender. Positive bowel sounds all 4 quadrants. No guarding. Musculoskeletal: Moves all extremities. No calf tenderness. No edema ap preciated. Central nervous system: AAO x3, CN 2-12 grossly intact Dermatologic: Skin warm and dry. Fungal rash noted around neck line, more on left side. Assessment and plan: Patient is a 38-year-old male with past medical history significant for suicidal ideation approximately one year ago that presented to the emergency room for depression and possible suicidal ideations. Medicine team consulted for rash around neck and tachycardia. 1. Fungal rash. Started on lotrisone BID. Patient advised to follow up with PMD if not resolved. 2. Constipation. Placed on colace. Monitor for bowel movement. 3. Tachycardia. Likely secondary to exercise. Asymptomatic. Continue to monitor 4. Depression. Suicidal ideations. Care as per primary team. Case was discussed in detail with the patient regarding current diagnosis and treatment plan. All questions answered. Thank you for allowing us to participate in the care of your patient. Patient has been started on Lotrisone for 7 days. We will sign off. Please reconsult at anytime if needed.
--- NOTE | 2018-12-02 16:48 | PCM.PYCHPN ---
Psychiatric Progress Note - Psychiatric Progress Note Patient seen today, length of contact: 30min Patient Chief Complaint: " I am doing much better, I prioritize everybody in my life, I want to be there for my family, I want to make my happy..." Problems Identified/Issues Discussed: treatment plan, medications, symptoms, 48hr notice, suicide and homicide preve ntion. Medical Problems: denied Diagnostic Results: 11/27/18 11:35 11/27/18 11:35 Lab Results 11/28/18 07:45: RPR Nonreactive 11/28/18 07:45: TSH 3rd Generation 1.41 11/28/18 07:45: Hemoglobin A1c 5.9 11/28/18 07:45: Fasting Glucose 92, Triglycerides 154, Cholesterol 198, LDL Cholesterol Direct 134 H, HDL Cholesterol 28 L 11/27/18 11:38: Urine Opiates Screen Negative, Urine Methadone Screen Negative, Ur Barbiturates Screen Negative, Ur Phencyclidine Scrn Negative, Ur Amphetamines Screen Negative, U Benzodiazepines Scrn Negative, U Oth Cocaine Metabols Negative, U Cannabinoids Screen Negative 11/27/18 11:38: Urine Color Yellow, Urine Appearance Clear, Urine pH 7.0, Ur Specific [place] 1.020, Urine Protein Negative, Urine Glucose (UA) Negative, Urine Ketones Negative, Urine Blood Negative, Urine Nitrate Negative, Urine Bilirubin Negative, Urine Urobilinogen 1.0 H, Ur Leukocyte Esterase Negative 11/27/18 11:35: Alcohol, Quantitative < 10 11/27/18 11:35: Salicylates < 1 L, Acetaminophen < 10.0 L 11/27/18 11:35: Sodium 139, Potassium 4.2, Chloride 104, Carbon Dioxide 28, Anion Gap 10, BUN 17, Creatinine 1.0, Est GFR ( Amer) > 60, Est GFR (Non- Af Amer) > 60, Random Glucose 99, Calcium 9.4, Total Bilirubin 0.5, AST 39, ALT 79 H, Alkaline Phosphatase 87, Total Protein 7.4, Albumin 4.3, Globulin 3.1, Albumin/Globulin Ratio 1.4 11/27/18 11:35: WBC 5.0, RBC 4.71, Hgb 14.5, Hct 41.9 L, MCV 89.0, MCH 30.8, MCH C 34.6, RDW 13.2, Plt Count 268, MPV 9.4, Neut % (Auto) 42.2 L, Lymph % (Auto) 41.6 H, [place] % (Auto) 12.2 H, Eos % (Auto) 3.8, Baso % (Auto) 0.2, Lymph # (Auto) 2.1, [place] # (Auto) 0.6, Eos # (Auto) 0.2, Baso # (Auto) 0.01, Absolute Neuts (auto) 2.11 Vital Signs Temp Pulse Resp BP Pulse Ox 11/29/18 06:37 97.9 F 87 14 113/74 11/28/18 16:00 83 122/86 11/28/18 06:32 97.6 F 89 16 117/79 11/27/18 16:47 98.3 F 74 17 124/88 99 11/27/18 16:04 98.5 F 67 17 127/85 97 11/27/18 14:26 98 F 73 19 121/81 98 11/27/18 10:56 98.6 F 73 18 119/77 98 DSM 5 Symptoms Update: shortly, patient is a 38-year old male, not known previous psychiatric history, patient denies history of suicidal attempts, patient denies history of being admitted to the psychiatric inpatient unit, patient was brought in by ambulance for evaluation of depressive symptoms. In the emergency room patient was minimizing his symptoms, denied any thoughts of harming himself, but as per patient's collateral information patient was verbalizing suicidal ideation with a plan to jump off the bridge. Patient texted his "I am done" "You win" "I can't do this anymore" "Take care of [place]". patient expressed highest concerns about patient's safety, patient was admitted for observation and stabilization and medication initiation and titration. Please see admission note for more detailed information. Over the weekend patient was compliant with her medications, had good report with staff, patient did not exhibit any aggressive or agitated behavior. SW and this pattern chart writer gave a call to patient Ben Gaines([phone]) to ask her impression how pt was doing over the weekend. Patient's reports when she came back to [place] for the weekend, she found an extension cord wrapped around a ceiling fan, she is not sure if he tried to harm self by hanging. over the weekend patient appeared to be "much calmer.", And started the patient stated that most likely it might be best if they didn't speak while he is hospitalized. PT's thought pt's statement was concerning to her. reported that patient will stay with his mother after discharge, this pattern chart writer explained that it would be better if patient will have day treatment program or intensive outpatient program right after discharge. Patient's agreed. Patient did not have history of mental illness, patient never been on any psychotropic medications. Later on p treatment team meeting, patient said his goals, patient wants to find a job,t was seen at the patient was in agreement to participate in outpatient program, patient confirmed that he will stay in his mother's apartment, patient reported that he feels "much better" patient reported that he is +100% that he will not kill himself. Prior to hospitalization patient said that the chances that he might hurt himself but then was 25% out of 100. Overall patient presented to be more talkative, less depressed, affect was more reactive, mood congruent. This pattern chart writer explained again risk, benefits, alternatives of the medications, coping strategies, safety plan. So far patient tolerates medications well, no side effects observed or reported, aims 0, no EPS. Impression: MDD, severe with psychosis Medication Change: Yes (risperdal increased) Medical Record Reviewed: Yes Consults ordered or reviewed: pt was evaluated/cleared by medical team in ED Mental Status Examination - Cognitive Function Orientation: Person, Place, Situation, Time Memory: Intact Attention: WNL Concentration: WNL Association: WNL Fund of Knowledge: WNL - Mood Mood: Depressed (better, hopeful), Anxious - Affect Affect: Constricted (friendly, bright), Flat - Speech Speech: Appropriate - Formal Thought Process Formal Thought Process: Paranoia (improving), Other (Patient was guarded) - Suicidal Ideation Suicidal Ideation: No - Homicidal Ideation Homicidal Ideation: No Goal/Treatment Plan - Goal/Treatment Plan Need for Continued Stay: Remain at risks for inpatient hospitalization, Severe depression anxiety, Discharge may exacerbated symptoms, Severe functional impairment Progress Toward Problem(s) and Goals/Treatment Plan: Milieu/structure/supportive therapy SW consultation for discharge plan and social issues Med management Wellbutrin 150mg daily for depression Klonopin 0.25 mg twice a day as needed for anxiety Sonata 5 mg as needed at the nighttime for insomnia Was increased to 1 mg twice a day for psychosis and mood stabilization Family involvement Follow up on labs Will monitor closely Pt was educated about risk/benefits and alternatives of medications, coping strategies (safety plan, suicide prevention), relapse prevention, importance of follow up with psychiatrist and therapist, stay away from drugs/alcohol/smoking Estimated Date of D/C: 12/04/18
[2018-12-02] MEDS: Clotrimazole/Betamethasone Cream(15 gm) TOP SCH (17:36)
[2018-12-03] MEDS: buPROPion 150 mg/24 Hours XL Tab PO SCH (09:23)
[2018-12-03] MEDS: Clotrimazole/Betamethasone Cream(15 gm) TOP SCH ×2 (09:24→18:08)
--- NOTE | 2018-12-03 17:13 | PCM.PYCHPN ---
Psychiatric Progress Note - Psychiatric Progress Note Patient seen today, length of contact: 30min Patient Chief Complaint: " I am not suicidal, you have to trust me, I will not do anything to hurt me or others...., I feel good, I find purpose in life..." Problems Identified/Issues Discussed: treatment plan, medications, symptoms, suicide prevention, discharge planning. Medical Problems: denied Diagnostic Results: 11/27/18 11:35 11/27/18 11:35 Lab Results 11/28/18 07:45: RPR Nonreactive 11/28/18 07:45: TSH 3rd Generation 1.41 11/28/18 07:45: Hemoglobin A1c 5.9 11/28/18 07:45: Fasting Glucose 92, Triglycerides 154, Cholesterol 198, LDL Cholesterol Direct 134 H, HDL Cholesterol 28 L 11/27/18 11:38: Urine Opiates Screen Negative, Urine Methadone Screen Negative, Ur Barbiturates Screen Negative, Ur Phencyclidine Scrn Negative, Ur Amphetamines Screen Negative, U Benzodiazepines Scrn Negative, U Oth Cocaine Metabols Negative, U Cannabinoids Screen Negative 11/27/18 11:38: Urine Color Yellow, Urine Appearance Clear, Urine pH 7.0, Ur Specific [place] 1.020, Urine Protein Negative, Urine Glucose (UA) Negative, Urine Ketones Negative, Urine Blood Negative, Urine Nitrate Negative, Urine Bilirubin Negative, Urine Urobilinogen 1.0 H, Ur Leukocyte Esterase Negative 11/27/18 11:35: Alcohol, Quantitative < 10 11/27/18 11:35: Salicylates < 1 L, Acetaminophen < 10.0 L 11/27/18 11:35: Sodium 139, Potassium 4.2, Chloride 104, Carbon Dioxide 28, Anion Gap 10, BUN 17, Creatinine 1.0, Est GFR ( Amer) > 60, Est GFR (Non- Af Amer) > 60, Random Glucose 99, Calcium 9.4, Total Bilirubin 0.5, AST 39, ALT 79 H, Alkaline Phosphatase 87, Total Protein 7.4, Albumin 4.3, Globulin 3.1, Albumin/Globulin Ratio 1.4 11/27/18 11:35: WBC 5.0, RBC 4.71, Hgb 14.5, Hct 41.9 L, MCV 89.0, MCH 30.8, MCHC 34.6, RDW 13.2, Plt Count 268, MPV 9.4, Neut % (Auto) 42.2 L, Lymph % (Auto) 41.6 H, [place] % (Auto) 12.2 H, Eos % (Auto) 3.8, Baso % (Auto) 0.2, Lymph # (Auto) 2.1, [place] # (Auto) 0.6, Eos # (Auto) 0.2, Baso # (Auto) 0.01, Absolute Neuts (auto) 2.11 Vital Signs Temp Pulse Resp BP Pulse Ox 11/29/18 06:37 97.9 F 87 14 113/74 11/28/18 16:00 83 122/86 11/28/18 06:32 97.6 F 89 16 117/79 11/27/18 16:47 98.3 F 74 17 124/88 99 11/27/18 16:04 98.5 F 67 17 127/85 97 11/27/18 14:26 98 F 73 19 121/81 98 11/27/18 10:56 98.6 F 73 18 119/77 98 DSM 5 Symptoms Update: shortly, patient is a 38-year old male, not known previous psychiatric history, patient denies history of suicidal attempts, patient denies history of being admitted to the psychiatric inpatient unit, patient was brought in by ambulance for evaluation of depressive symptoms. In the emergency room patient was minimizing his symptoms, denied any thoughts of harming himself, but as per patient's collateral information patient was verbalizing suicidal ideation with a plan to jump off the bridge. Patient texted his "I am done" "You win" "I can't do this anymore" "Take care of [place]". patient expressed highest concerns about patient's safety, patient was admitted for observation and stabilization and medication initiation and titration. Please see admission note for more detailed information. Over the weekend patient was compliant with her medications, had good report with staff, patient did not exhibit any aggressive or agitated behavior. SW is working on d/c planning, pt agreed to be referred to [facility]. pt presented much better, pt's affect is reactive, pt is more spontaneous with his responses, pt reported that he likes medications he is currently on, pt denied any side effects. based on report from pt's 11/02/17 pt's came back to [place] for the weekend, she found an extension cord wrapped around a ceiling fan. this play writer asked the patient, pt admitted that he thought that he would hang self, "but as I said I am much better now, I think it was very stupid, you have to trust me, I will not do it again.." pt agreed with the plan that pt's family will pick him up, he will stay in his mother's house, pt will have to f/u with [facility]. Patient contracted for safety, future oriented plans. So far patient tolerates medications well, no side effects observed or reported, aims 0, no EPS. Impression: MDD, severe with psychosis Medication Change: Yes (risperdal increased) Medical Record Reviewed: Yes Consults ordered or reviewed: pt was evaluated/cleared by medical team in ED Mental Status Examination - Cognitive Function Orientation: Person, Place, Situation, Time Memory: Intact Attention: WNL Concentration: WNL Association: WNL Fund of Knowledge: WNL - Mood Mood: Depressed (better, hopeful), Anxious ("I am not anxious, I feel fine") - Affect Affect: Broad (And mood congruent), Flat - Speech Speech: Appropriate - Formal Thought Process Formal Thought Process: No Impairment - Suicidal Ideation Suicidal Ideation: No - Homicidal Ideation Homicidal Ideation: No Goal/Treatment Plan - Goal/Treatment Plan Need for Continued Stay: Remain at risks for inpatient hospitalization, Severe depression anxiety, Discharge may exacerbated symptoms, Severe functional impairment Progress Toward Problem(s) and Goals/Treatment Plan: Milieu/structure/supportive therapy SW consultation for discharge plan and social issues Med management Wellbutrin 150mg daily for depression Klonopin 0.25 mg twice a day as needed for anxiety Sonata 5 mg as needed at the nighttime for insomnia Risperdal 1 mg twice a day for psychosis and mood stabilization Family involvement Follow up on labs Will monitor closely Pt was educated about risk/benefits and alternatives of medications, coping strategies (safety plan, suicide prevention), relapse prevention, importance of follow up with psychiatrist and therapist, stay away from drugs/alcohol/smoking Estimated Date of D/C: 12/04/18
[2018-12-04 07:14] VITALS: RESP 20; TEMP 98.2
[2018-12-04] MEDS: buPROPion 150 mg/24 Hours XL Tab PO SCH (09:14)
[2018-12-04] MEDS: Clotrimazole/Betamethasone Cream(15 gm) TOP SCH ×2 (09:15→17:24)
--- NOTE | 2018-12-04 16:04 | PCM.PYCHPN ---
Psychiatric Progress Note - Psychiatric Progress Note Patient seen today, length of contact: 30min Patient Chief Complaint: " I feel much better..." Problems Identified/Issues Discussed: treatment plan, medications, symptoms, suicide prevention, discharge planning. Medical Problems: denied Diagnostic Results: 11/27/18 11:35 11/27/18 11:35 Lab Results 11/28/18 07:45: RPR Nonreactive 11/28/18 07:45: TSH 3rd Generation 1.41 11/28/18 07:45: Hemoglobin A1c 5.9 11/28/18 07:45: Fasting Glucose 92, Triglycerides 154, Cholesterol 198, LDL Cholesterol Direct 134 H, HDL Cholesterol 28 L 11/27/18 11:38: Urine Opiates Screen Negative, Urine Methadone Screen Negative, Ur Barbiturates Screen Negative, Ur Phencyclidine Scrn Negative, Ur Amphetamines Screen Negative, U Benzodiazepines Scrn Negative, U Oth Cocaine Metabols Negative, U Cannabinoids Screen Negative 11/27/18 11:38: Urine Color Yellow, Urine Appearance Clear, Urine pH 7.0, Ur Specific [place] 1.020, Urine Protein Negative, Urine Glucose (UA) Negative, Urine Ketones Negative, Urine Blood Negative, Urine Nitrate Negative, Urine Bilirubin Negative, Urine Urobilinogen 1.0 H, Ur Leukocyte Esterase Negative 11/27/18 11:35: Alcohol, Quantitative < 10 11/27/18 11:35: Salicylates < 1 L, Acetaminophen < 10.0 L 11/27/18 11:35: Sodium 139, Potassium 4.2, Chloride 104, Carbon Dioxide 28, Anion Gap 10, BUN 17, Creatinine 1.0, Est GFR ( Amer) > 60, Est GFR (Non- Af Amer) > 60, Random Glucose 99, Calcium 9.4, Total Bilirubin 0.5, AST 39, ALT 79 H, Alkaline Phosphatase 87, Total Protein 7.4, Albumin 4.3, Globulin 3.1, Albumin/Globulin Ratio 1.4 11/27/18 11:35: WBC 5.0, RBC 4.71, Hgb 14.5, Hct 41.9 L, MCV 89.0, MCH 30.8, MCHC 34.6, RDW 13.2, Plt Count 268, MPV 9.4, Neut % (Auto) 42.2 L, Lymph % (Auto) 41.6 H, [place] % (Auto) 12.2 H, Eos % (Auto) 3.8, Baso % (Auto) 0.2, Lymph # (Auto) 2.1, [place] # (Auto) 0.6, Eos # (Auto) 0.2, Baso # (Auto) 0.01, Absolute Neuts (auto) 2.11 Vital Signs Temp Pulse Resp BP Pulse Ox 11/29/18 06:37 97.9 F 87 14 113/74 11/28/18 16:00 83 122/86 11/28/18 06:32 97.6 F 89 16 117/79 11/27/18 16:47 98.3 F 74 17 124/88 99 11/27/18 16:04 98.5 F 67 17 127/85 97 11/27/18 14:26 98 F 73 19 121/81 98 11/27/18 10:56 98.6 F 73 18 119/77 98 DSM 5 Symptoms Update: shortly, patient is a 38-year old male, not known previous psychiatric history, patient denies history of suicidal attempts, patient denies history of being admitted to the psychiatric inpatient unit, patient was brought in by ambulance for evaluation of depressive symptoms. In the emergency room patient was minimizing his symptoms, denied any thoughts of harming himself, but as per patient's collateral information patient was verbalizing suicidal ideation with a plan to jump off the bridge. Patient texted his "I am done" "You win" "I can't do this anymore" "Take care of [place]". patient expressed hig hest concerns about patient's safety, patient was admitted for observation and stabilization and medication initiation and titration. Please see admission note for more detailed information. pt was seen at the day treatment area, affect was bright, pt was more spontaneous, relaxed, pleasant. pt reported tolerating medications well, no side effects observed or reported. as per staff pt is participating in all group activities, no agitation/no aggression/pt has good appetite and sleep. pt contracted for safety, pt has future oriented goals, initially pt will attend [facility], then "I want to find a job and make my family proud of me.." pt agreed for referral to [facility]TP, agreed to stay in his mother's house, agreed to take meds. during this hospitalization pt did not exhibit any agitation/aggression. So far patient tolerates medications well, no side effects observed or reported, aims 0, no EPS. Impression: MDD, severe with psychosis Medication Change: No Medical Record Reviewed: Yes Mental Status Examination - Cognitive Function Orientation: Person, Place, Situation, Time Memory: Intact Attention: WNL Concentration: WNL Association: WNL Fund of Knowledge: WN - Mood Mood: Depressed (better, hopeful), Anxious ("I am not anxious, I feel fine") - Affect Affect: Broad (And mood congruent), Flat - Speech Speech: Appropriate - Formal Thought Process Formal Thought Process: No Impairment - Suicidal Ideation Suicidal Ideation: No - Homicidal Ideation Homicidal Ideation: No Goal/Treatment Plan - Goal/Treatment Plan Need for Continued Stay: Remain at risks for inpatient hospitalization, Severe depression anxiety, Discharge may exacerbated symptoms, Severe functional impairment Progress Toward Problem(s) and Goals/Treatment Plan: Milieu/structure/supportive therapy SW consultation for discharge plan and social issues Med management Wellbutrin 150mg daily for depression Klonopin 0.25 mg twice a day as needed for anxiety Sonata 5 mg as needed at the nighttime for insomnia Risperdal 1 mg twice a day for psychosis and mood stabilization Family involvement Follow up on labs Will monitor closely Pt was educated about risk/benefits and alternatives of medications, coping strategies (safety plan, suicide prevention), relapse prevention, importance of follow up with psychiatrist and therapist, stay away from drugs/alcohol/smoking pt is waiting for [facility] to be accepted. Estimated Date of D/C: 12/06/18
[2018-12-05] MEDS: buPROPion 150 mg/24 Hours XL Tab PO SCH (09:20)
[2018-12-05] MEDS: Clotrimazole/Betamethasone Cream(15 gm) TOP SCH ×2 (09:20→17:22)
--- NOTE | 2018-12-05 11:49 | PCM.PYCHPN ---
Psychiatric Progress Note - Psychiatric Progress Note Patient seen today, length of contact: 30min Patient Chief Complaint: " I feel much better..., you can trust me, I will follow with all of your recommendations..." Problems Identified/Issues Discussed: treatment plan, medications, symptoms, suicide prevention, discharge planning. Medical Problems: denied Diagnostic Results: 11/27/18 11:35 11/27/18 11:35 Lab Results 11/28/18 07:45: RPR Nonreactive 11/28/18 07:45: TSH 3rd Generation 1.41 11/28/18 07:45: Hemoglobin A1c 5.9 11/28/18 07:45: Fasting Glucose 92, Triglycerides 154, Cholesterol 198, LDL Cholesterol Direct 134 H, HDL Cholesterol 28 L 11/27/18 11:38: Urine Opiates Screen Negative, Urine Methadone Screen Negative, Ur Barbiturates Screen Negative, Ur Phencyclidine Scrn Negative, Ur Amphetamines Screen Negative, U Benzodiazepines Scrn Negative, U Oth Cocaine Metabols Negative, U Cannabinoids Screen Negative 11/27/18 11:38: Urine Color Yellow, Urine Appearance Clear, Urine pH 7.0, Ur Specific [place] 1.020, Urine Protein Negative, Urine Glucose (UA) Negative, Urine Ketones Negative, Urine Blood Negative, Urine Nitrate Negative, Urine Bilirubin Negative, Urine Urobilinogen 1.0 H, Ur Leukocyte Esterase Negative 11/27/18 11:35: Alcohol, Quantitative < 10 11/27/18 11:35: Salicylates < 1 L, Acetaminophen < 10.0 L 11/27/18 11:35: Sodium 139, Potassium 4.2, Chloride 104, Carbon Dioxide 28, Anion Gap 10, BUN 17, Creatinine 1.0, Est GFR ( Amer) > 60, Est GFR (Non- Af Amer) > 60, Random Glucose 99, Calcium 9.4, Total Bilirubin 0.5, AST 39, ALT 79 H, Alkaline Phosphatase 87, Total Protein 7.4, Albumin 4.3, Globulin 3.1, Albumin/Globulin Ratio 1.4 11/27/18 11:35: WBC 5.0, RBC 4.71, Hgb 14.5, Hct 41.9 L, MCV 89.0, MCH 30.8, MCHC 34.6, RDW 13.2, Plt Count 268, MPV 9.4, Neut % (Auto) 42.2 L, Lymph % (Auto) 41.6 H, [place] % (Auto) 12.2 H, Eos % (Auto) 3.8, Baso % (Auto) 0.2, Lymph # (Auto) 2.1, [place] # (Auto) 0.6, Eos # (Auto) 0.2, Baso # (Auto) 0.01, Absolute Neuts (auto) 2.11 Vital Signs Temp Pulse Resp BP Pulse Ox 11/29/18 06:37 97.9 F 87 14 113/74 11/28/18 16:00 83 122/86 11/28/18 06:32 97.6 F 89 16 117/79 11/27/18 16:47 98.3 F 74 17 124/88 99 11/27/18 16:04 98.5 F 67 17 127/85 97 11/27/18 14:26 98 F 73 19 121/81 98 11/27/18 10:56 98.6 F 73 18 119/77 98 DSM 5 Symptoms Update: shortly, patient is a 38-year old male, not known previous psychiatric history, patient denies history of suicidal attempts, patient denies history of being admitted to the psychiatric inpatient unit, patient was brought in by ambulance for evaluation of depressive symptoms. In the emergency room patient was minimizing his symptoms, denied any thoughts of harming himself, but as per patient's collateral information patient was verbalizing suicidal ideation with a plan to jump off the bridge. Patient texted his "I am done" "You win" "I can't do this anymore" "Take care of [place]". patient expressed highest concerns about patient's safety, patient was admitted for observation and stabilization and medication initiation and titration. Please see admission note for more detailed information. pt was seen next to the nursing station, affect was bright, pt was more spontaneous, relaxed, pleasant. pt reported tolerating medications well, no side effects observed or reported. as per staff pt is participating in all group activities, no agitation/no aggression/pt has good appetite and sleep, staff reported that pt is doing "very well, pleasant, has good insight" pt contracted for safety, pt has future oriented goals, initially pt will attend [facility], then "I will follow with all of your recommendations" pt agreed for referral to DTP, agreed to stay in his mother's house, agreed to take meds. during this hospitalization pt did not exhibit any agitation/aggression. So far patient tolerates medications well, no side effects observed or reported, aims 0, no EPS. Impression: MDD, severe with psychosis Medication Change: No Medical Record Reviewed: Yes Mental Status Examination - Cognitive Function Orientation: Person, Place, Situation, Time Memory: Intact Attention: WNL Concentration: WNL Association: WNL Fund of Knowledge: WNL - Mood Mood: Depressed (better, hopeful), Anxious ("I am not anxious, I feel fine") - Affect Affect: Broad (And mood congruent), Flat - Speech Speech: Appropriate - Formal Thought Process Formal Thought Process: No Impairment - Suicidal Ideation Suicidal Ideation: No - Homicidal Ideation Homicidal Ideation: No Goal/Treatment Plan - Goal/Treatment Plan Need for Continued Stay: Remain at risks for inpatient hospitalization, Severe depression anxiety, Discharge may exacerbated symptoms, Severe functional impairment Progress Toward Problem(s) and Goals/Treatment Plan: Milieu/structure/supportive therapy SW consultation for discharge plan and social issues Med management Wellbutrin 150mg daily for depression Klonopin 0.25 mg twice a day as needed for anxiety Sonata 5 mg as needed at the nighttime for insomnia Risperdal 1 mg twice a day for psychosis and mood stabilization Family involvement Follow up on labs Will monitor closely Pt was educated about risk/benefits and alternatives of medications, coping strategies (safety plan, suicide prevention), relapse prevention, importance of follow up with psychiatrist and therapist, stay away from drugs/alcohol/smoking pt is waiting for DTP to be accepted. Estimated Date of D/C: 12/06/18
[2018-12-05 16:29] VITALS: BP 130/85; PULSE 99
--- NOTE | 2018-12-06 16:52 | PCM.PYCHDC ---
Mental Status Examination - Mental Status Examination Orientation: Person, Place, Situation, Time Memory: Intact Mood: Neutral Affect: Broad (And mood congruent) Speech: Appropriate Attention: WNL Concentration: WNL Association: WNL Fund of Knowledge: WNL Formal Thought Process: No Impairment Description of patient's judgement and insight: Pt has improved insight into mental and medical illness, pt was compliant with medications and unit rules and regulations, pt was going to groups, was calm, cooperative, socially appropriate, no behavioral incidents, no agitation, no aggression. Psychotic Thoughts and Behaviors: Pt denied v/a/t hallucinations, denied paranoid ideations, pt does not appear to be psychotic, and thought process is goal directed. Suicidal Ideation: No Current Homicidal Ideation?: No Plan: pt adamantly denied thoughts of harming self or others denied intent or plan. Discharge Summary - Discharge Note Reason for Hospitalization: Patient was admitted for evaluation and stabilization of depressive symptoms, possible suicidal ideations, patient told his to take care of kids and made it clear that he wanted to end up his life. See admission note for more detailed information. Psychiatric History (includes Medical, Family, Personal Hx): See HPI Laboratory Data: 11/27/18 11:35 11/27/18 11:35 Lab Results 11/28/18 07:45: RPR Nonreactive 11/28/18 07:45: TSH 3rd Generation 1.41 11/28/18 07:45: Hemoglobin A1c 5.9 11/28/18 07:45: Fasting Glucose 92, Triglycerides 154, Cholesterol 198, LDL Cholesterol Direct 134 H, HDL Cholesterol 28 L 11/27/18 11:38: Urine Opiates Screen Negative, Urine Methadone Screen Negative, Ur Barbiturates Screen Negative, Ur Phencyclidine Scrn Negative, Ur Amphetamines Screen Negative, U Benzodiazepines Scrn Negative, U Oth Cocaine Metabols Negative, U Cannabinoids Screen Negative 11/27/18 11:38: Urine Color Yellow, Urine Appearance Clear, Urine pH 7.0, Ur Specific [place] 1.020, Urine Protein Negative, Urine Glucose (UA) Negative, Urine Ketones Negative, Urine Blood Negative, Urine Nitrate Negative, Urine Bilirubin Negative, Urine Urobilinogen 1.0 H, Ur Leukocyte Esterase Negative 11/27/18 11:35: Alcohol, Quantitative < 10 11/27/18 11:35: Salicylates < 1 L, Acetaminophen < 10.0 L 11/27/18 11:35: Sodium 139, Potassium 4.2, Chloride 104, Carbon Dioxide 28, Anion Gap 10, BUN 17, Creatinine 1.0, Est GFR ( Amer) > 60, Est GFR (Non- Af Amer) > 60, Random Glucose 99, Calcium 9.4, Total Bilirubin 0.5, AST 39, ALT 79 H, Alkaline Phosphatase 87, Total Protein 7.4, Albumin 4.3, Globulin 3.1, Albumin/Globulin Ratio 1.4 11/27/18 11:35: WBC 5.0, RBC 4.71, Hgb 14.5, Hct 41.9 L, MCV 89.0, MCH 30.8, MCHC 34.6, RDW 13.2, Plt Count 268, MPV 9.4, Neut % (Auto) 42.2 L, Lymph % (Au to) 41.6 H, Sweet [place] % (Auto) 12.2 H, Eos % (Auto) 3.8, Baso % (Auto) 0.2, Lymph # (Auto) 2.1, [place] # (Auto) 0.6, Eos # (Auto) 0.2, Baso # (Auto) 0.01, Absolute Neuts (auto) 2.11 Vital Signs Temp Pulse Resp BP Pulse Ox 12/05/18 16:00 99 H 130/85 12/05/18 07:12 98.2 F 102 H 20 112/75 12/04/18 16:00 68 108/75 12/04/18 07:13 98.2 F 106 H 20 108/62 12/03/18 16:00 116 H 136/77 12/03/18 06:28 98 F 89 14 129/88 12/02/18 16:00 92 H 114/79 12/02/18 06:53 98.2 F 106 H 20 122/82 12/01/18 16:00 100 H 112/58 L 11/30/18 15:55 88 H 116/67 11/30/18 08:08 97.6 F 101 H 18 122/77 11/29/18 15:00 89 115/74 11/29/18 06:37 97.9 F 87 14 113/74 11/28/18 16:00 83 122/86 11/28/18 06:32 97.6 F 89 16 117/79 11/27/18 16:47 98.3 F 74 17 124/88 99 11/27/18 16:04 98.5 F 67 17 127/85 97 11/27/18 14:26 98 F 73 19 121/81 98 11/27/18 10:56 98.6 F 73 18 119/77 98 Consultations:: List each consultation separately and include: 1. Reason for request. 2. Findings. 3. Follow-up Consultations: pt was evaluated/cleared by medical team in ED Patient followed up by hospitalist service, input appreciated. Summary of Hospital Course include:: 1. Description of specific treatment plan utilized for patients during their course of treatmen. 2. Summarize the time- course for resolution of acute symptoms and/or regressed behaviors. 3. Describe issues identified and worked on during hospitalization. 4. Describe medication utilized. 5. Describe medical problems identified and treated. 6. Reassessment of suicide risk Summary of Hospital Course: shortly, patient is a 38-year old male, not known previous psychiatric history, patient denies history of suicidal attempts, patient denies history of being admitted to the psychiatric inpatient unit, patient was brought in by ambulance for evaluation of depressive symptoms. In the emergency room patient was minimizing his symptoms, denied any thoughts of harming himself, but as per patient's collateral information patient was verbalizing suicidal ideation with a plan to jump off the bridge. Patient texted his "I am done" "You win" "I can't do this anymore" "Take care of [place]". patient expressed highs concerns about patient's safety, patient was admitted for observation and stabilization and medication initiation and titration. At the time of initial evaluation patient presented to be secretive, was making vague statement such as "I had a few problems, I was facing few issues, I was not able to pass some difficulties....."thought process was circumstantial but not tangential, pt was not opening up, patient reported for past week and a half he was not doing well. Pt admitted that he had a suicidal ideation only when this job specification writer mentioned about his text to his , pt became tearful. See admission note for more detailed information. During this hospitalization patient's was actively involved to do the patient treatment, please see previous notes for more detailed information. Patient was stabilized with the following medications: Wellbutrin 150 mg daily for depression Risperdal 1 mg twice a day for paranoia and mood stabilization Patient tolerated medications well, no side effects observed or reported, aims 0, no EPS Slowly patient opened up, reported that she wanted to end up his life, as per when she visited patient's apartment because of cord drinking from ceiling fan. Patient acknowledged that, patient seems to be deeply regretful, Insight improved. Patient tried his best to improve as fast as possible, patient was attending all of the groups, patient was visible in the unit, patient wrote down all his future oriented plans, patient was visited by his family/, please see social organization professor notes for more detailed information. Patient agreed to follow-up at the treatment program and stay in his mother's apartment. Overall patient improved significantly, affect good, brighter, patient became more hopeful, patient did not present to be psychotic or paranoid or agitated. Patient reached maximum effect from this acute hospitalization and deemed ready for discharge. Patient's as well as pt's mother came to the unit 12/05/18, reported that patient presented much better and she feels comfortable and confident to take patient back home. Patient contracted for safety, lulu job specification writer "I will be okay, I will try my best, I know you can trust me..." At the time of the discharge patient was considered to pose no imminent danger to self or others, will be following up at [facility], day treatment program, information about follow up appointment, time and address provided to the pt, (see SW note for more detailed information). It is a patient responsibility to follow up with outpatient clinic, PMD as well as specialists In case patient will need to obtain results of studies pending at discharge, patient was provided with contact information of Psychiatric Inpatient unit [phone] as well as Medical Record Department [phone], as well as [facility] team [phone]. Patient denied using drugs, denied consumption pt was provided with prescriptions see medication reconciliation form Pt was educated about safety plan in case of worsening of symptoms or in case of suicidal or homicidal ideation call 911 or go to the nearest ER, also was educated to take meds as prescribed and stay away from drugs, pt verbalized understanding. 11/27/18 11:35 11/27/18 11:35 Lab Results 11/28/18 07:45: TSH 3rd Generation 1.41 11/28/18 07:45: Hemoglobin A1c 5.9 11/28/18 07:45: Fasting Glucose 92, Triglycerides 154, Cholesterol 198, LDL Cholesterol Direct 134 H, HDL Cholesterol 28 L 11/27/18 11:38: Urine Opiates Screen Negative, Urine Methadone Screen Negative, Ur Barbiturates Screen Negative, Ur Phencyclidine Scrn Negative, Ur Amphetamines Screen Negative, U Benzodiazepines Scrn Negative, U Oth Cocaine Metabols Negative, U Cannabinoids Screen Negative 11/27/18 11:38: Urine Color Yellow, Urine Appearance Clear, Urine pH 7.0, Ur Specific [place] 1.020, Urine Protein Negative, Urine Glucose (UA) Negative, Urine Ketones Negative, Urine Blood Negative, Urine Nitrate Negative, Urine Bilirubin Negative, Urine Urobilinogen 1.0 H, Ur Leukocyte Esterase Negative 11/27/18 11:35: Alcohol, Quantitative < 10 11/27/18 11:35: Salicylates < 1 L, Acetaminophen < 10.0 L 11/27/18 11:35: Sodium 139, Potassium 4.2, Chloride 104, Carbon Dioxide 28, Anion Gap 10, BUN 17, Creatinine 1.0, Est GFR ( Amer) > 60, Est GFR (Non- Af Amer) > 60, Random Glucose 99, Calcium 9.4, Total Bilirubin 0.5, AST 39, ALT 79 H, Alkaline Phosphatase 87, Total Protein 7.4, Albumin 4.3, Globulin 3.1, Albumin/Globulin Ratio 1.4 11/27/18 11:35: WBC 5.0, RBC 4.71, Hgb 14.5, Hct 41.9 L, MCV 89.0, MCH 30.8, MCHC 34.6, RDW 13.2, Plt Count 268, MPV 9.4, Neut % (Auto) 42.2 L, Lymph % (Auto) 41.6 H, [place] % (Auto) 12.2 H, Eos % (Auto) 3.8, Baso % (Auto) 0.2, Lymph # (Auto) 2.1, [place] # (Auto) 0.6, Eos # (Auto) 0.2, Baso # (Auto) 0.01, Absolute Neuts (auto) 2.11 Vital Signs Temp Pulse Resp BP Pulse Ox 11/28/18 06:32 97.6 F 89 16 117/79 11/27/18 16:47 98.3 F 74 17 124/88 99 11/27/18 16:04 98.5 F 67 17 127/85 97 11/27/18 14:26 98 F 73 19 121/81 98 11/27/18 10:56 98.6 F 73 18 119/77 98 - Diagnosis (1) Major depressive disorder, recurrent, severe with psychotic features Status: Acute - Final Diagnosis (DSM 5) Condition upon Discharge: GOOD Disposition: HOME/ ROUTINE Follow-up Treatment Plan: At the time of the discharge patient was considered to pose no imminent danger to self or others, will be following up at [facility], day treatment program, information about follow up appointment, time and address provided to the pt, (see SW note for more detailed information). It is a patient responsibility to follow up with outpatient clinic, PMD as well as specialists In case patient will need to obtain results of studies pending at discharge, patient was provided with contact information of Psychiatric Inpatient unit [phone] as well as Medical Record Department [phone], as well as [facility] team [phone]. Patient denied using drugs, denied consumption pt was provided with prescriptions see medication reconciliation form Pt was educated about safety plan in case of worsening of symptoms or in case of suicidal or homicidal ideation call 911 or go to the nearest ER, also was educated to take meds as prescribed and stay away from drugs, pt verbalized understanding. Prescriptions/Medication Reconciliation: buPROPion XL [Wellbutrin XL] 150 mg PO DAILY #14 t24 Clotrimazole/Betamethasone [Lotrisone] 1 gm TOP BID #1 tube risperiDONE [RisperDAL Tab] 1 mg PO AMHS #30 tab - Smoking Cessation Smoking Cessation Medication prescribed: No Reason for not providing: Denies smoking - Antipsychotic Medications Pt discharged on 2 or more routine antipsychotic medications: No
== END 2018-12-05 19:15 | disposition home or self-care (01) | DRG 430 ==
LOC: ED 10:56 → EDLOC 15:53 → ERH 15:53 → PSYC 15:53 → UNDOADMIN 15:53 → PSYC 16:36 → ERH 16:36
PROVIDERS: ADMIT Psychiatry & Neurology Psychiatry; ATTEND Psychiatry & Neurology Psychiatry
PROC: GZ3ZZZZ Medication Management (ICD-10-PCS; principal; 2018-11-28)
DX: F32.3 Major depressive disorder, single episode, severe with psychotic features (principal); R45.851 Suicidal ideations; B36.9 Superficial mycosis, unspecified; K59.00 Constipation, unspecified; G47.00 Insomnia, unspecified; Z87.891 Personal history of nicotine dependence